=== PATIENT | female | born 1995 | race American Indian/Alaskan Native ===

== ENCOUNTER 2018-06-28 13:44 | Emergency (ER) | payer SELFPAY ==
[2018-06-28 14:10] VITALS: BP 107/67
[2018-06-28] MEDS ORDERED: TYLENOL PO ONE (14:55)
[2018-06-28] MEDS ORDERED: LIDOCAINE VISCOUS 2% PO ONE (14:55)
[2018-06-28] MEDS ORDERED: ALUM-MAG HYDROX-SIMETH 200-200-20MG/5ML PO ONE (14:55)
--- NOTE | 2018-06-28 14:56 | Emergency Department Report ---
ED ENT HPI - General Chief complaint: Sore Throat Stated complaint: THROAT/EAR ACHE Time Seen by Provider: 06/28/18 14:46 Source: patient Mode of arrival: Ambulatory Limitations: No Limitations - History of Present Illness Initial comments: Patient is a 23-year-old female who presents to ED with his mother complaining of throat pain 4 days. Patient describes pain as throbbing in nature, 8 out of 10 intensity, nonradiating, localized to her throat. Admits pain with swallowing and eating. Patient admits no appetite due to throat pain. Patient admits dry, nonproductive cough. Patient denies nausea/vomiting/abdominal pain/shortness of breath/chest pain/headache. MD complaint: sore throat - Related Data Previous Rx's Medication Instructions Recorded Last Taken Type Amoxicillin [Amoxicillin TAB] 875 mg PO BID #14 tablet 06/28/18 Unknown Rx Ibuprofen [Motrin] 600 mg PO Q8H #30 tablet 06/28/18 Unknown Rx Nystas/Diphen/Xyl Visc/Mylanta 15 ml PO TID #120 ml 06/28/18 Unknown Rx [Magic Mouthwash] Allergies Allergy/AdvReac Type Severity Reaction Status Date / Time No Known Allergies Allergy Unverified 06/28/18 14:10 ED Dental HPI - General Chief complaint: Sore Throat Stated complaint: THROAT/EAR ACHE Time Seen by Provider: 06/28/18 14:46 Source: patient Mode of arrival: Ambulatory Limitations: No Limitations - Related Data Previous Rx's Medication Instructions Recorded Last Taken Type Amoxicillin [Amoxicillin TAB] 875 mg PO BID #14 tablet 06/28/18 Unknown Rx Ibuprofen [Motrin] 600 mg PO Q8H #30 tablet 06/28/18 Unknown Rx Nystas/Diphen/Xyl Visc/Mylanta 15 ml PO TID #120 ml 06/28/18 Unknown Rx [Magic Mouthwash] Allergies Allergy/AdvReac Type Severity Reaction Status Date / Time No Known Allergies Allergy Unverified 06/28/18 14:10 ED Review of Systems ROS: Stated complaint: THROAT/EAR ACHE Other details as noted in HPI Comment: All other systems reviewed and negative ED Past Medical Hx - Past Medical History Previous Medical History?: No - Surgical History Past Surgical History?: Yes Additional Surgical History: Breast reduction - Social History Smoking Status: Never Smoker Substance Use Type: None - Medications Home Medications: Home Medications Medication Instructions Recorded Confirmed Last Taken Type Amoxicillin [Amoxicillin TAB] 875 mg PO BID #14 tablet 06/28/18 Unknown Rx Ibuprofen [Motrin] 600 mg PO Q8H #30 tablet 06/28/18 Unknown Rx Nystas/Diphen/Xyl Visc/Mylanta 15 ml PO TID #120 ml 06/28/18 Unknown Rx [Magic Mouthwash] ED Physical Exam - General Limitations: No Limitations General appearance: alert, in no apparent distress - Head Head exam: Present: atraumatic, normocephalic - Eye Eye exam: Present: normal appearance - ENT ENT exam: Present: mucous membranes moist - Expanded ENT Exam Expanded Throat exam: Positive: tonsillar erythema, tonsillar exudate. Negative: R peritonsillar mass, L peritonsillar mass - Neck Neck exam: Present: normal inspection - Respiratory Respiratory exam: Present: normal lung sounds bilaterally. Absent: respiratory distress - Cardiovascular Cardiovascular Exam: Present: regular rate, normal rhythm. Absent: systolic murmur, diastolic murmur, rubs, gallop - GI/Abdominal GI/Abdominal exam: Present: soft, normal bowel sounds - Extremities Exam Extremities exam: Present: normal inspection - Back Exam Back exam: Present: normal inspection - Neurological Exam Neurological exam: Present: alert, oriented X3 - Psychiatric Psychiatric exam: Present: normal affect, normal mood - Skin Skin exam: Present: warm, dry, intact, normal color. Absent: rash ED Course Vital Signs 06/28/18 06/28/18 14:08 15:18 Temperature 100.6 F H Pulse Rate 104 H Respiratory 18 18 Rate Blood Pressure 107/67 O2 Sat by Pulse 97 Oximetry ED Medical Decision Making - Medical Decision Making 23-year-old male presents with pharyngitis. ED course: Rapid strep tests ordered rapid strep test negative Patient received prednisone, Tylenol and Maalox lidocaine mix Medically diagnosis based on examination, which treated with prescription antibiotics and Magic mouthwash Vital signs stable patient is in no acute or respiratory distress. Discussed findings with patient about the positive strep. Discussed treatment in ED with patient Discussed the patient that strep throat is contagious and to limit sharing spoons and such. Discussed with patient follow-up with primary care physician. Patient verbally states she understands and will comply to follow-up. Critical care attestation.: If time is entered above; I have spent that time in minutes in the direct care of this critically ill patient, excluding procedure time. ED Disposition Clinical Impression: Pharyngitis Disposition: DC-01 TO HOME OR SELFCARE Is pt being admited?: No Does the pt Need Aspirin: No Condition: Stable Instructions: Strep Throat (ED), Pharyngitis (ED) Additional Instructions: Make sure to follow up with the primary care physician as discussed. Take all your medications as you've been prescribed. If you have any worsening symptoms or develop new symptoms please return to ED immediately. Prescriptions: Amoxicillin [Amoxicillin TAB] 875 mg PO BID #14 tablet Ibuprofen [Motrin] 600 mg PO Q8H #30 tablet Nystas/Diphen/Xyl Visc/Mylanta [Magic Mouthwash] 15 ml PO TID #120 ml Referrals: CLAUS GALVAN DO [Primary Care Provider] - 3-5 Days [facility] [Outside] - 3-5 Days [facility] [Outside] - 3-5 Days Forms: Accompanied Note, Work/School Release Form(ED) Time of Disposition: 16:06
== END 2018-06-28 16:30 | disposition home or self-care (01) ==
LOC: ED 13:44
DX: J02.9 Acute pharyngitis, unspecified (principal)
CPT/HCPCS: 87116; 87430